=== PATIENT | female | born 1965 | race Caucasian/White ===

== ENCOUNTER 2020-02-15 21:28 | Emergency (ER) | payer MEDICARE, BC ==
[2020-02-15] MEDS ORDERED: SODIUM CHLORIDE 0.9% (FLUSH) 10 ML SYG IV PRN (22:00)
[2020-02-15] MEDS ORDERED: SODIUM CHLORIDE 0.9% 1000ML 1,000 ML IVS ONE (22:02)
--- NOTE | 2020-02-15 22:39 | ED.PDOC ---
History of Present Illness - General Chief Complaint: Trauma Stated Complaint: left arm weakness, high blood sugar, falling, Time Seen by Provider: 02/15/20 22:00 Source: patient, RN notes reviewed, Vital Signs reviewed, family - Mother Exam Limitations: no limitations - History of Present Illness Initial Comments: Patient is a 54-year-old white female who presents from home. Patient complains of headache, not feeling well, left arm weakness and numbness. The falling started 2 days ago. The left arm weakness and numbness started yesterday. The headache is throbbing in nature. Patient complains of light sensitivity. Pain is worse when she moves her head. Patient also complains of knee pain. She states the knee pain is because she fell on her knees yesterday.. Severity: moderate Improving Factors: nothing Worsening Factors: movement Associated Symptoms: headaches, malaise, weakness Allergies/Adverse Reactions: Allergies NO KNOWN ALLERGY Allergy (Verified 02/15/20 22:49) Home Medications: Ambulatory Orders Alprazolam [Alprazolam ER] 1 mg PO BID 02/15/20 Aspirin [Aspirin Childrens] 81 mg PO DAILY 02/15/20 Atorvastatin Calcium 40 mg PO DAILY 02/15/20 Duloxetine HCl 60 mg PO DAILY 02/15/20 Empagliflozin [Jardiance] 10 mg PO DAILY 02/15/20 Ferrous Sulfate [Iron] 65 mg PO DAILY 02/15/20 Human Insulin Aspart [Novolog] See Protocol SUBCU QID 02/15/20 Insulin Glargine 100U/ml [Lantus] 45 unit SUBCU BID 02/15/20 Lisinopril 10 mg PO DAILY 02/15/20 Metformin HCl [Metformin Hydrochloride] 1,000 mg PO DAILY 02/15/20 Metoprolol Succinate [Metoprolol Succinate ER] 100 mg PO DAILY 02/15/20 Oxycodone HCl 15 mg PO Q4HR PRN 02/15/20 Oxycodone HCl [Oxycontin] 40 mg PO BID 02/15/20 Victoza 1.2 units SC DAILY 02/15/20 Zolpidem Tartrate 10 mg PO BEDTIME 02/15/20 amLODIPine BESYLATE [Norvasc] 5 mg PO DAILY 02/15/20 Review of Systems - Review of Systems Constitutional: States: see HPI, malaise, weakness. Denies: chills, fever EENTM: States: see HPI, eye pain - To light Respiratory: States: no symptoms reported. Denies: cough, short of breath, wheezing Cardiology: States: no symptoms reported. Denies: chest pain, palpitations, syncope Gastrointestinal/Abdominal: States: see HPI, nausea. Denies: abdominal pain, diarrhea, vomiting Genitourinary: States: no symptoms reported. Denies: dysuria, frequency Musculoskeletal: States: joint pain - Bilateral knees and left shoulder., other - Left arm weakness and numbness. Skin: Denies: change in color, rash Neurological: States: see HPI, headache, numbness - Left arm, weakness - Left arm Endocrine: States: increased thirst, other - Poorly controlled diabetes secondary to medication noncompliance due to not having enough medication with her while visiting her mother Hematologic/Lymphatic: States: no symptoms reported All other Systems: Reviewed and Negative Family Medical History - Family History Mother Family History: Unknown Hx Cardiac Disease: Yes Physical Exam - Physical Exam General Appearance: Anxious, Lethargic, Obvious distress, Well Developed, Well Nourished, Other - Patient is confused. Eye Exam: bilateral normal - Except for bilateral photophobia Ears, Nose, Throat: hearing grossly normal, normal pharynx - Except for dry mucous membranes, other - Patient with multiple bruises on the head in various stages of healing that are at least 2 days old. Neck: non-tender, full range of motion, supple, normal inspection Respiratory: chest non-tender, lungs clear, normal breath sounds, no respiratory distress, no accessory muscle use Cardiovascular/Chest: normal peripheral pulses, no edema, no gallop, tachycardia Peripheral Pulses: radial,right: 2+, radial,left: 2+ Gastrointestinal/Abdominal: normal bowel sounds, non tender, soft Back Exam: normal inspection, no CVA tenderness, no vertebral tenderness Extremity: other - Left forearm with 0/5 strength. Left arm and hand with loss of two-point discrimination. Only dull sense is left intact. Patient with a left BKA. 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 Skin Exam: pallor Lymphatic: no adenopathy Progress - Progress Progress: Differential diagnosis: CVA, TIA, hyperglycemia, medication reaction among others. 02/15/20 23:27 Patient with a negative head CT for any type of intracranial bleed per radiology. Does not show any type of watershed or massive stroke. Patient does have slurred speech and left arm weakness which are concerning for a subacute cerebral stroke. Patient has had multiple falls over the last few days and this too could be related to a cerebellar or cerebral stroke. It is possible that the symptoms are all related to medication overdose. Patient is going to necessitate further evaluation by neurology and MRI. I discussed this with the patient and she agrees to transfer to [facility] for further evaluation. I discussed transfer with Dr. Jules, neurology, at [facility] and she agrees patient needs further evaluation. Patient has been accepted by Dr. Mccray in the emergency department for transfer. Plan on transfer at this time. Anuj Null M.D. #[id number] - Results/Orders Results/Orders: PROCEDURE: CT Head CLINICAL HISTORY: Left arm weakness after recurrent falls. TECHNIQUE: Contiguous axial CT images obtained through the brain without IV contrast. Coronal and sagittal reformatted images were provided. This exam was performed according to our departmental dose-optimization program, which includes autom ated exposure control, adjustment of the mA and/or kV according to patient size and/or use of iterative reconstruction technique. COMPARISON: None available for comparison FINDINGS: Brain: Mild bilateral periventricular and subcortical white matter hypodensity which is nonspecific and can be seen in the clinical setting of chronic microvascular angiopathy. No focal mass effect. Mejia-white matter differentiation is within normal limits. No hemorrhage. Ventricles: No ventriculomegaly or midline shift. Extra-axial spaces: No extra-axial collection or hemorrhage. Paranasal sinuses and mastoid air cells: Small left maxillary sinus mucous retention cyst/polyp. Minimal right maxillary sinus mucosal thickening. Vessels: There is atherosclerotic disease of the internal carotid arteries bilaterally. Bones: Unremarkable Soft tissues: Unremarkable IMPRESSION: 1. No acute intracranial or extra-axial abnormality. 2. Other findings as above. Electronically signed by: Junior Lr MD 02/15/2020 10:47 PM CDT EXAM DESCRIPTION: XR Chest,1 View CLINICAL HISTORY: left arm weakness and left shoulder pain TECHNIQUE: Single frontal view of the chest is submitted. COMPARISON: None available for comparison FINDINGS: Heart: The cardiothoracic silhouette is within normal limits. Lungs: No focal consolidation. Mediastinum: Unremarkable Pleura: No appreciable effusion. No pneumothorax. Bones: Intact Upper abdomen: Unremarkable IMPRESSION: No acute disease. Electronically signed by: Junior Lr MD 02/15/2020 10:47 PM CDT 02/15/20 22:00 IV Care:Saline Lock per Protoc QSHIFT Telemetry .ONCE Sodium Chloride 0.9% (Flush) [Saline Flush Syringe] 10 ml IV PRN PRN EKG STAT 02/16/20 22:00 EKG STAT Laboratory Results - last 24 hr 02/15/20 02/15/20 02/15/20 21:02 21:02 21:02 WBC 7.8 RBC 5.23 Hgb 15.4 Hct 44.5 MCV 85.0 MCH 29.4 MCHC 34.5 RDW 12.5 Plt Count 263 MPV 9.2 Absolute Neuts (auto) 4.70 Absolute Lymphs (auto) 2.50 Absolute Monos (auto) 0.40 Absolute Eos (auto) 0.10 Absolute Basos (auto) 0.10 Neutrophils % 59.9 Lymphocytes % 31.6 Monocytes % 5.4 Eosinophils % 1.8 Basophils % 1.3 PT 9.3 INR < 1.00 PTT (SP) 22.3 pCO2 pO2 HCO3 ABG pH ABG O2 Saturation ABG Base Excess ABG Deoxyhemoglobin Oxyhemoglobin % Carboxyhemoglobin % Methemoglobin % Sat Calc Total Hemoglobin Sodium 129 L Potassium 3.5 L Chloride 94 L Carbon Dioxide 22 Anion Gap 16.5 BUN 10 Creatinine 0.54 L BUN/Creatinine Ratio 18.5 POC Glucose Random Glucose 620 H* Serum Osmolality 286.8 Calcium 9.1 Total Bilirubin 0.5 AST 26 ALT 23 Alkaline Phosphatase 124 H Creatine Kinase 20 L CK-MB (CK-2) 1.1 CK-MB (CK-2) % Not Reportable Troponin I < 0.02 Serum Total Protein 7.2 Albumin 3.4 Globulin 3.8 H Albumin/Globulin Ratio 0.9 L Serum HCG, Qual 02/15/20 02/15/20 02/15/20 21:02 21:02 22:13 WBC RBC Hgb Hct MCV MCH MCHC RDW Plt Count MPV Absolute Neuts (auto) Absolute Lymphs (auto) Absolute Monos (auto) Absolute Eos (auto) Absolute Basos (auto) Neutrophils % Lymphocytes % Monocytes % Eosinophils % Basophils % PT INR PTT (SP) pCO2 pO2 HCO3 ABG pH ABG O2 Saturation ABG Base Excess ABG Deoxyhemoglobin Oxyhemoglobin % Carboxyhemoglobin % Methemoglobin % Sat Calc Total Hemoglobin Sodium Potassium Chloride Carbon Dioxide Anion Gap BUN Creatinine BUN/Creatinine Ratio POC Glucose > 400 H* Random Glucose Cancelled Serum Osmolality Calcium Total Bilirubin AST ALT Alkaline Phosphatase Creatine Kinase CK-MB (CK-2) CK-MB (CK-2) % Troponin I Serum Total Protein Albumin Globulin Albumin/Globulin Ratio Serum HCG, Qual Negative 02/15/20 22:30 WBC RBC Hgb Hct MCV MCH MCHC RDW Plt Count MPV Absolute Neuts (auto) Absolute Lymphs (auto) Absolute Monos (auto) Absolute Eos (auto) Absolute Basos (auto) Neutrophils % Lymphocytes % Monocytes % Eosinophils % Basophils % PT INR PTT (SP) pCO2 37 pO2 64 L HCO3 27.3 ABG pH 7.477 H ABG O2 Saturation 94.7 L ABG Base Excess 3.8 ABG Deoxyhemoglobin 5.2 H Oxyhemoglobin % 93.0 L Carboxyhemoglobin % 1.1 Methemoglobin % Sat 0.7 Calc Total Hemoglobin 15.7 Sodium Potassium Chloride Carbon Dioxide Anion Gap BUN Creatinine BUN/Creatinine Ratio POC Glucose Random Glucose Serum Osmolality Calcium Total Bilirubin AST ALT Alkaline Phosphatase Creatine Kinase CK-MB (CK-2) CK-MB (CK-2) % Troponin I Serum Total Protein Albumin Globulin Albumin/Globulin Ratio Serum HCG, Qual EKG performed 15 February 2020 at 2227 hrs.: Sinus tachycardia 105 bpm, left atrial enlargement, no ST or T wave changes, borderline EKG. Departure - Departure Clinical Impression: Slurred speech, Falling episodes CVA (cerebral vascular accident) Qualifiers: CVA mechanism: unspecified Qualified Code(s): I63.9 - Cerebral infarction, uns pecified Fever Qualifiers: Fever type: unspecified Qualified Code(s): R50.9 - Fever, unspecified Time of Disposition: 23:32 Disposition: Transfer to Hospital Condition: Fair Departure Forms: ED Discharge - Pt. Copy, Patient Portal Self Enrollment Home Medications: Ambulatory Orders Alprazolam [Alprazolam ER] 1 mg PO BID 02/15/20 Aspirin [Aspirin Childrens] 81 mg PO DAILY 02/15/20 Atorvastatin Calcium 40 mg PO DAILY 02/15/20 Duloxetine HCl 60 mg PO DAILY 02/15/20 Empagliflozin [Jardiance] 10 mg PO DAILY 02/15/20 Ferrous Sulfate [Iron] 65 mg PO DAILY 02/15/20 Human Insulin Aspart [Novolog] See Protocol SUBCU QID 02/15/20 Insulin Glargine 100U/ml [Lantus] 45 unit SUBCU BID 02/15/20 Lisinopril 10 mg PO DAILY 02/15/20 Metformin HCl [Metformin Hydrochloride] 1,000 mg PO DAILY 02/15/20 Metoprolol Succinate [Metoprolol Succinate ER] 100 mg PO DAILY 02/15/20 Oxycodone HCl 15 mg PO Q4HR PRN 02/15/20 Oxycodone HCl [Oxycontin] 40 mg PO BID 02/15/20 Victoza 1.2 units SC DAILY 02/15/20 Zolpidem Tartrate 10 mg PO BEDTIME 02/15/20 amLODIPine BESYLATE [Norvasc] 5 mg PO DAILY 02/15/20 Critical Care Note - Critical Care Note Total Time (mins): 45 Transfer to Outside Facility - Transfer Information Decision to Transfer Date: 02/15/20 Decision to Transfer Time: 23:00 Reason for Transfer: required specialist not available Accepting Facility: [facility]
--- NOTE | 2020-02-15 22:48 | CT ---
PROCEDURE: CT Head CLINICAL HISTORY: Left arm weakness after recurrent falls. TECHNIQUE: Contiguous axial CT images obtained through the brain without IV contrast. Coronal and sagittal reformatted images were provided. This exam was performed according to our departmental dose-optimization program, which includes automated exposure control, adjustment of the mA and/or kV according to patient size and/or use of iterative reconstruction technique. COMPARISON: None available for comparison FINDINGS: Brain: Mild bilateral periventricular and subcortical white matter hypodensity which is nonspecific and can be seen in the clinical setting of chronic microvascular angiopathy. No focal mass effect. Mejia-white matter differentiation is within normal limits. No hemorrhage. Ventricles: No ventriculomegaly or midline shift. Extra-axial spaces: No extra-axial collection or hemorrhage. Paranasal sinuses and mastoid air cells: Small left maxillary sinus mucous retention cyst/polyp. Minimal right maxillary sinus mucosal thickening. Vessels: There is atherosclerotic disease of the internal carotid arteries bilaterally. Bones: Unremarkable Soft tissues: Unremarkable IMPRESSION: 1. No acute intracranial or extra-axial abnormality. 2. Other findings as above. Electronically signed by: Junior Lr MD 02/15/2020 10:47 PM CDT
--- NOTE | 2020-02-15 22:49 | RAD ---
EXAM DESCRIPTION: XR Chest,1 View CLINICAL HISTORY: left arm weakness and left shoulder pain TECHNIQUE: Single frontal view of the chest is submitted. COMPARISON: None available for comparison FINDINGS: Heart: The cardiothoracic silhouette is within normal limits. Lungs: No focal consolidation. Mediastinum: Unremarkable Pleura: No appreciable effusion. No pneumothorax. Bones: Intact Upper abdomen: Unremarkable IMPRESSION: No acute disease. Electronically signed by: Junior Lr MD 02/15/2020 10:47 PM CDT
[2020-02-15] MEDS ORDERED: POTASSIUM CHLORIDE INJ 40 MEQ 40 MEQ in SODIUM CHLORIDE 0.9% 250ML 250 ML IVPB ONE (23:04)
[2020-02-15] MEDS ORDERED: POTASSIUM CHLORIDE 20 MEQ TAB PO ONE (23:05)
[2020-02-15 23:31] VITALS: BP 184/108; O2SAT 95
[2020-02-15] MEDS ORDERED: SODIUM CHLORIDE 0.9% 250ML 250 ML ONE (23:39)
[2020-02-15] MEDS ORDERED: POTASSIUM CHLORIDE 40mEq 20ML VIAL ONE (23:39)
[2020-02-16 00:12] VITALS: TEMP 98.4
== END 2020-02-16 00:12 | disposition short-term general hospital (02) ==
LOC: ER 21:28
DX: I63.9 Cerebral infarction, unspecified (principal); R47.81 Slurred speech; R50.9 Fever, unspecified; G81.94 Hemiplegia, unspecified affecting left nondominant side; R51 Headache; M25.561 Pain in right knee; M25.562 Pain in left knee; M25.512 Pain in left shoulder; R00.0 Tachycardia, unspecified; Z79.4 Long term (current) use of insulin; Z79.899 Other long term (current) drug therapy; Z91.128 Patient's intentional underdosing of medication regimen for other reason; Z79.82 Long term (current) use of aspirin
CPT/HCPCS: 36600; 70450; 71045; 80053; 81001; 82550; 82553; 82803; 82805; 82948; 84484; 84703; 85025; 85610; 85730; 87502; 93005; J3480; J7030; J7050